=== PATIENT | male | born 1970 | race Caucasian/White ===

== ENCOUNTER 2016-08-21 17:16 | Emergency (ER) | payer MEDICAID ==
[~2016-08-21] VITALS: Ht 170.2 cm; Wt 121.7 kg
[~2016-08-21 17:16] MED LIST: HYDR-1093 PO; IBUP800T PO; SUMA25TA3 PO
[2016-08-21 17:17] VITALS: BP 146/80
[2016-08-21 18:15] LABS: ASPARTATE AMINO TRANSFERASE 28 U/L (15-37); BLOOD UREA NITROGEN 18 mg/dL (7-18)
[2016-08-21] MEDS ORDERED: OXYC5CAP4 PO (19:27)
== END 2016-08-21 19:28 | disposition home or self-care (01) ==
LOC: ED 19:22
DX: C43.4 Malignant melanoma of scalp and neck (principal); R63.4 Abnormal weight loss
CPT/HCPCS: 36415; 80053; 85025; 99284